=== PATIENT | female | born 1990 | race African-American/Black ===

== ENCOUNTER 2017-09-16 12:46 | Emergency (ER) | payer OTHER ==
[~2017-09-16] VITALS: Ht 154.9 cm; Wt 45.8 kg
[~2017-09-16 12:46] MED LIST: IBUPROFEN 800800 M1 PO; NOHOMEMEDICATIONS; NORCO 5-325 TA1 EACH PO
[2017-09-16 13:02] VITALS: BP 103/68
[2017-09-16] MEDS ORDERED: ATIVAN0.5 MG PO (13:25)
== END 2017-09-16 14:01 | disposition home or self-care (01) ==
LOC: ER 12:46
DX: F41.0 Panic disorder [episodic paroxysmal anxiety] (principal); F43.9 Reaction to severe stress, unspecified; F43.20 Adjustment disorder, unspecified